=== PATIENT | male | born 1945 | race Caucasian/White ===

== ENCOUNTER 2017-10-01 06:17 | Inpatient (IN) | payer MEDICARE ==
[2017-10-01] VITALS (7 sets, daily range): BP systolic 97–151; BP diastolic 55–76
[~2017-10-01] VITALS: Ht 157.4 cm; Wt 72.7 kg
[~2017-10-01 06:17] MED LIST: CLINDAMYCIN HC300 MG PO; PRILOSEC OTC20 MG PO
[2017-10-01 07:01] LABS: BASO % 0.5 % (0.0-1.0); EOS % 0.1 % (1.0-4.0); HEMATOCRIT 41.7 % (42.0-52.0); HEMOGLOBIN 14.2 g/dl (14.0-18.0); LYMPH # 0.9 10*3/uL (1.3-4.4); LYMPH % 10.3 % (27.0-41.0); MEAN CELL VOLUME 85.3 fl (80.0-94.0); MEAN CORPUSCULAR HGB CONC 34.1 g/dl (33.0-37.0); MEAN PLATELET VOLUME 10.2 fl (9.6-12.3); MONO # 0.8 10*3/uL (0.1-1.0); MONO % 8.8 % (3.0-9.0); NEUT # 6.8 10*3/uL (2.3-7.9); NEUT % 80.2 % (47.0-73.0); PLATELET COUNT AUTOMATED 209 10*3/uL (130-400); RED BLOOD COUNT 4.89 10*6/uL (4.50-5.90); RED CELL DISTRI WIDTH 13.5 % (0-14.5); WHITE BLOOD COUNT 8.5 10*3/uL (4.8-10.8)
[2017-10-01 07:18] LABS: ALBUMIN 3.6 gm/dl (3.1-4.5); ALKALINE PHOSPHATASE 61 U/L (45-117); BUN 12 mg/dl (7-24); CHLORIDE 96 mmol/L (98-107); CREATININE 0.85 mg/dL (0.70-1.30); POTASSIUM 3.5 mmol/L (3.5-5.1); SGOT/AST 28 IU/L (3-35); SGPT/ALT 14 U/L (12-78); SODIUM 133 mmol/L (136-145)
[2017-10-01 07:19] LABS: TROPONIN I < 0.015 ng/ml (<0.045)
[2017-10-01 07:24] LABS: THYROID STIM HORMONE (HS) 0.787 uIU/ml (0.358-4.75)
[2017-10-01] MEDS ORDERED: PROAIR HFA8.5 GM INH (08:38)
[2017-10-01] MEDS ORDERED: PREDNISONE50 MG PO (08:38)
[2017-10-01] MEDS ORDERED: AVPAK AZITHROM250 MG PO (08:38)
[2017-10-01 09:58] LABS: ABG BASE EXCESS 1.8 mmol/L (-2.0-2.0); ABG HCO3 25.4 mmol/l (22-26); ABG O2 SATURATION 90.1 % (95-97); ARTERIAL BLOOD GAS PH 7.417 (7.35-7.45); ARTERIAL BLOOD GAS PO2 60.2 mmHg (80-90)
[2017-10-01] MEDS ORDERED: LIPITOR20 MG PO (10:41)
[2017-10-01] MEDS ORDERED: HYDR25T PO (21:16)
[2017-10-01] MEDS ORDERED: PRAZOSIN HCL2 MG PO (21:16)
[2017-10-02] VITALS: BP 106/91
[2017-10-02 06:04] LABS: HEMATOCRIT 37.3 % (42.0-52.0); HEMOGLOBIN 12.3 g/dl (14.0-18.0); LYMPH # 0.7 10*3/uL (1.3-4.4); LYMPH % 11.1 % (27.0-41.0); MEAN PLATELET VOLUME 10.8 fl (9.6-12.3); MONO # 0.3 10*3/uL (0.1-1.0); MONO % 4.8 % (3.0-9.0); NEUT # 5.5 10*3/uL (2.3-7.9); NEUT % 83.6 % (47.0-73.0); PLATELET COUNT AUTOMATED 209 10*3/uL (130-400); RED BLOOD COUNT 4.39 10*6/uL (4.50-5.90); RED CELL DISTRI WIDTH 13.5 % (0-14.5); WHITE BLOOD COUNT 6.5 10*3/uL (4.8-10.8)
[2017-10-02 06:30] LABS: ALBUMIN 2.8 gm/dl (3.1-4.5); BUN 13 mg/dl (7-24); CHLORIDE 107 mmol/L (98-107); CHOLESTEROL 92 mg/dL (<200); CREATININE 0.69 mg/dL (0.70-1.30); PHOSPHOROUS 2.4 mg/dL (2.5-4.9); POTASSIUM 3.8 mmol/L (3.5-5.1); SGOT/AST 20 IU/L (3-35); SGPT/ALT 11 U/L (12-78); SODIUM 141 mmol/L (136-145); TOTAL PROTEIN 6.1 gm/dL (6.4-8.2); TRIGLYCERIDES 35 mg/dl (<150); VLDL CHOLESTEROL 7 mg/dL (6-40)
[2017-10-02 06:33] LABS: ACT PARTIAL THROMBO TIME 25.9 SECONDS (20.8-31.5); INTERNATIONAL NORM RATIO 1.1 (2.0-3.5)
[2017-10-02 06:36] LABS: ALKALINE PHOSPHATASE 51 U/L (45-117); FREE T4 1.16 ng/dl (0.76-1.46); HDL CHOLESTEROL 51 mg/dl (40-60); LDL CHOLESTEROL 34 mg/dL (9-159); THYROID STIM HORMONE (HS) 0.188 uIU/ml (0.358-4.75)
[2017-10-02 07:52] LABS: VITAMIN D, 25-HYDROXY 16.1 ng/mL (30-100)
[2017-10-02 08:00] VITALS: BP 129/65
[2017-10-02 12:00] VITALS: BP 142/57
[2017-10-02 16:00] VITALS: BP 146/57
[2017-10-02 20:00] VITALS: BP 140/66
[2017-10-03] VITALS: BP 152/60
[2017-10-03 08:00] VITALS: BP 143/68
[2017-10-03] MEDS ORDERED: MUCINEX ER600 MG PO (09:39)
[2017-10-03] MEDS ORDERED: PREDNISONE10 MG PO (09:39)
[2017-10-03] MEDS ORDERED: LEVAQUIN500 M2 PO (09:39)
[2017-10-03 12:00] VITALS: BP 105/61
[2017-10-03 16:00] VITALS: BP 124/66
[2017-10-03 20:00] VITALS: BP 120/53
[2017-10-04] VITALS: BP 138/56
[2017-10-04 03:25] VITALS: BP 118/58
[2017-10-04 05:55] LABS: BASO % 0.1 % (0.0-1.0); BUN 14 mg/dl (7-24); CHLORIDE 104 mmol/L (98-107); CREATININE 0.63 mg/dL (0.70-1.30); EOS % 0.1 % (1.0-4.0); HEMATOCRIT 37.4 % (42.0-52.0); HEMOGLOBIN 12.2 g/dl (14.0-18.0); LYMPH # 0.8 10*3/uL (1.3-4.4); LYMPH % 7.4 % (27.0-41.0); MEAN CELL VOLUME 86.4 fl (80.0-94.0); MEAN CORPUSCULAR HGB 28.2 pg (27.0-31.0); MEAN CORPUSCULAR HGB CONC 32.6 g/dl (33.0-37.0); MEAN PLATELET VOLUME 10.8 fl (9.6-12.3); MONO # 0.4 10*3/uL (0.1-1.0); MONO % 4.1 % (3.0-9.0); NEUT # 9.3 10*3/uL (2.3-7.9); NEUT % 87.6 % (47.0-73.0); PLATELET COUNT AUTOMATED 249 10*3/uL (130-400); POTASSIUM 4.2 mmol/L (3.5-5.1); RED BLOOD COUNT 4.33 10*6/uL (4.50-5.90); RED CELL DISTRI WIDTH 13.5 % (0-14.5); SODIUM 139 mmol/L (136-145); WHITE BLOOD COUNT 10.6 10*3/uL (4.8-10.8)
[2017-10-04 08:00] VITALS: BP 146/70
[2017-10-04 12:00] VITALS: BP 139/75
[2017-10-04 16:00] VITALS: BP 149/68
== END 2017-10-04 18:56 | disposition home or self-care (01) | DRG 871 ==
LOC: ED 06:17 → 4E 09:29 → EDHOLD 09:29 → 4E 09:31
PROVIDERS: Emergency Medicine Emergency Medical Services; Family Medicine
PROC: 3E073KZ Introduction of Other Diagnostic Substance into Coronary Artery, Percutaneous Approach (ICD-10-PCS; principal; 2017-10-04)
PROC: 4A02XM4 Measurement of Cardiac Total Activity, External Approach (ICD-10-PCS; principal; 2017-10-04)
DX: A41.9 Sepsis, unspecified organism (principal); J18.9 Pneumonia, unspecified organism; J96.01 Acute respiratory failure with hypoxia; I44.2 Atrioventricular block, complete; J44.0 Chronic obstructive pulmonary disease with (acute) lower respiratory infection; J44.1 Chronic obstructive pulmonary disease with (acute) exacerbation; E87.1 Hypo-osmolality and hyponatremia; R65.20 Severe sepsis without septic shock; K21.9 Gastro-esophageal reflux disease without esophagitis; G47.30 Sleep apnea, unspecified; F12.10 Cannabis abuse, uncomplicated; E78.5 Hyperlipidemia, unspecified; R73.03 Prediabetes; Z87.891 Personal history of nicotine dependence; Z88.2 Allergy status to sulfonamides; Z79.2 Long term (current) use of antibiotics; Z79.899 Other long term (current) drug therapy; Z80.3 Family history of malignant neoplasm of breast; Z80.8 Family history of malignant neoplasm of other organs or systems

== ENCOUNTER 2019-04-03 13:45 | Emergency (ER) | payer MEDICARE ==
[~2019-04-03] VITALS: Ht 177.8 cm; Wt 72.6 kg
[~2019-04-03 13:45] MED LIST changes: +AVPAK AZITHROM250 MG PO; +HYDR25T PO; +LEVAQUIN500 M2 PO; +LIPITOR20 MG PO; +MUCINEX ER600 MG PO; +PRAZOSIN HCL2 MG PO; +PREDNISONE10 MG PO; +PREDNISONE50 MG PO; +PROAIR HFA8.5 GM INH
[2019-04-03] MEDS ORDERED: KEFLEX500 M1 PO (14:38)
== END 2019-04-03 14:39 | disposition home or self-care (01) ==
LOC: ED 13:45
DX: S60.312A Abrasion of left thumb, initial encounter (principal); L08.9 Local infection of the skin and subcutaneous tissue, unspecified; J44.9 Chronic obstructive pulmonary disease, unspecified; K21.9 Gastro-esophageal reflux disease without esophagitis; E78.5 Hyperlipidemia, unspecified; Z88.2 Allergy status to sulfonamides; Z79.899 Other long term (current) drug therapy; Z87.891 Personal history of nicotine dependence; W22.8XXA Striking against or struck by other objects, initial encounter; Y93.89 Activity, other specified; Y92.89 Other specified places as the place of occurrence of the external cause; Y99.8 Other external cause status

== ENCOUNTER 2020-05-06 10:31 | Emergency (ER) | payer MEDICARE ==
[~2020-05-06] VITALS: Ht 177.8 cm; Wt 73.5 kg
[~2020-05-06 10:31] MED LIST changes: +KEFLEX500 M1 PO
== END 2020-05-06 11:05 | disposition home or self-care (01) ==
LOC: ED 10:31
DX: T16.2XXA Foreign body in left ear, initial encounter (principal); K21.9 Gastro-esophageal reflux disease without esophagitis; I10 Essential (primary) hypertension; Z79.899 Other long term (current) drug therapy; Z88.8 Allergy status to other drugs, medicaments and biological substances; X58.XXXA Exposure to other specified factors, initial encounter; Y93.89 Activity, other specified; Y92.89 Other specified places as the place of occurrence of the external cause; Y99.8 Other external cause status

== ENCOUNTER → 2022-01-20 | Outpatient (CLI) | payer MEDICARE | END | disposition home or self-care (01) | LOC: RAD 10:27 | PROVIDERS: ATTEND Chiropractor | DX: M51.37 Other intervertebral disc degeneration, lumbosacral region (principal); M85.88 Other specified disorders of bone density and structure, other site ==

== ENCOUNTER 2023-07-14 15:15 | Emergency (ER) | payer MEDICARE ==
[~2023-07-14] VITALS: Ht 177.8 cm; Wt 73.5 kg
[2023-07-14] MEDS ORDERED: METHOCARBAMOL500 M1 PO (20:06)
[2023-07-14] MEDS ORDERED: NAPROXEN250 MG PO (20:06)
== END 2023-07-14 20:14 | disposition home or self-care (01) ==
LOC: ED 15:15
DX: M54.42 Lumbago with sciatica, left side (principal); F17.200 Nicotine dependence, unspecified, uncomplicated; Z88.2 Allergy status to sulfonamides; Z79.2 Long term (current) use of antibiotics; Z79.899 Other long term (current) drug therapy; Z98.890 Other specified postprocedural states

== ENCOUNTER 2025-06-06 09:16 | Emergency (ER) | payer OTHER ==
[~2025-06-06] VITALS: Wt 68.0 kg
[~2025-06-06 09:16] MED LIST changes: +METHOCARBAMOL500 M1 PO; +NAPROXEN250 MG PO
[2025-06-06 10:45] LABS: BASO # 0.1 10*3/uL (0.0-0.1); BASO % 1.1 % (0.0-1.0); EOS # 0.3 10*3/uL (0.0-0.4); EOS % 3.1 % (1.0-4.0); MEAN CELL VOLUME 86.6 fl (80.0-94.0); MEAN CORPUSCULAR HGB 29.0 pg (27.0-31.0); MEAN PLATELET VOLUME 9.0 fl (9.6-12.3); MONO # 0.6 10*3/uL (0.1-1.0); MONO % 7.6 % (3.0-9.0); NEUT # 5.4 10*3/uL (2.3-7.9); NEUT % 65.6 % (47.0-73.0); NUCLEATED RED BLOOD CELL 0.0 % (0.0-0.0); NUCLEATED RED BLOOD CELL 0.0 10*3/uL (0.0-0.0); PLATELET COUNT AUTOMATED 396 10*3/uL (130-400); RED CELL DISTRI WIDTH 12.2 % (0-14.5)
[2025-06-06 11:06] LABS: BUN 11 mg/dl (9-23)
[2025-06-06 11:08] LABS: SGPT/ALT < 7 U/L (5-49)
== END 2025-06-06 12:54 | disposition home or self-care (01) ==
LOC: ED 09:16
PROVIDERS: Student in an Organized Health Care Education/Training Program
DX: R55 Syncope and collapse (principal); R05.9 Cough, unspecified; I10 Essential (primary) hypertension; K21.9 Gastro-esophageal reflux disease without esophagitis; Z87.891 Personal history of nicotine dependence; Z98.890 Other specified postprocedural states; Z88.2 Allergy status to sulfonamides

== ENCOUNTER → 2025-06-18 | Outpatient (CLI) | payer OTHER | END | disposition home or self-care (01) | LOC: CT 12:34 | PROVIDERS: ATTEND Nurse Practitioner Family | DX: J43.9 Emphysema, unspecified (principal); J98.4 Other disorders of lung; R05.9 Cough, unspecified; I25.10 Atherosclerotic heart disease of native coronary artery without angina pectoris ==